=== PATIENT | male | born 1985 | race Caucasian/White ===

== ENCOUNTER 2017-08-08 19:39 | Emergency (ER) | payer MEDICAID ==
[~2017-08-08] VITALS: Ht 175.3 cm; Wt 83.9 kg
[2017-08-08 19:46] VITALS: BP_SYST 133
--- NOTE | 2017-08-08 21:22 | NUR ---
Patient to ER bed 2 to gown for evaluation. Side rails up. Report given to Deysi.
--- NOTE | 2017-08-08 21:25 | NUR ---
Patient brought in by self complaining of constant aching right groin pain. Pain 9/10. Patient also states that he has a persistenet non productive cough for 2 weeks. Pain worsening with cough. Denies any fever, nausea, vomiting and diarrhea. No other complaints/injuries per patient or as noted. Will continue to monitor.
--- NOTE | 2017-08-08 21:30 | NUR ---
ER Dr. Walls at bedside examining patient.
[2017-08-08 21:33] VITALS: BP_SYST 133
--- NOTE | 2017-08-08 21:33 | NUR ---
Patient given written and verbal discharge instructions and verbalizes understanding. ER MD discussed with patient the results and treatment provided. Patient in stable condition. ID arm band removed. Rx of Proethazine, Augmentin given. Patient educated on pain management and to follow up with PMD in 2-3 days. Pain Scale 0/10 Opportunity for questions provided and answered.
== END 2017-08-08 21:33 | disposition home or self-care (01) ==
LOC: SED 19:39
DX: K40.90 Unilateral inguinal hernia, without obstruction or gangrene, not specified as recurrent (principal); J40 Bronchitis, not specified as acute or chronic
CPT/HCPCS: 71010; 99283

== ENCOUNTER 2017-11-06 19:05 | Emergency (ER) | payer MEDICAID ==
[~2017-11-06] VITALS: Ht 175.3 cm; Wt 81.6 kg
[2017-11-06 19:05] VITALS: BP_SYST 125
--- NOTE | 2017-11-06 19:10 | NUR ---
Patient to ER bed 3 to gown for evaluation. Side rails up. Report given to Rosendo TAVARES.
--- NOTE | 2017-11-06 19:18 | NUR ---
Pt states that he has had upper left quadrant pain for two months with epigastric pain and throat pain. Denies N/V/D. More pain after eating and describes it as pressure. Pt states it was worse today. Will continue to monitor. No distress noted.
--- NOTE | 2017-11-06 19:50 | NUR ---
ER Dr. Walls at bedside examining patient.
[2017-11-06 20:15] LABS: BILIRUBIN,URINE NEGATIVE (NEGATIVE); BLOOD, URINE NEGATIVE (NEGATIVE); CLARITY/URINE CLEAR (CLEAR); COLOR,URINE YELLOW (YELLOW); GLUCOSE,URINE NEGATIVE (NEGATIVE); KETONES,URINE NEGATIVE (NEGATIVE); LEUKOCYTE ESTERASE ,URINE NEGATIVE (NEGATIVE); NITRITE, URINE NEGATIVE (NEGATIVE); PROTEIN URINE NEGATIVE (NEGATIVE)
[2017-11-06 20:31] LABS: BASOPHILS % (AUTO) 0.5 % (0.0-2.0); EOSINOPHILS # (AUTO) 0.2 K/uL (0.0-0.4); EOSINOPHILS % (AUTO) 2.3 % (0.0-4.0); HEMATOCRIT 42.8 % (36-54); MEAN CORPUSCULAR HEMOGLOBIN 32 pg (27-31); MEAN CORPUSCULAR HGB CONC 35 % (32-36); MEAN CORPUSCULAR VOLUME 91 fL (79.0-98.0); MONOCYTES # (AUTO) 0.6 K/uL (0.0-1.0); MONOCYTES % (AUTO) 8.1 % (1.7-9.3); NEUTROPHILS # (AUTO) 4.5 K/uL (1.8-7.7); NEUTROPHILS % (AUTO) 61.1 % (40.0-70.0); PLATELET COUNT (AUTO) 243 K/uL (130-430); RED CELL DISTRIBUTION WIDTH 12.1 % (9.0-15.0); WHITE BLOOD COUNT (AUTO) 7.3 K/uL (4.8-10.8)
[2017-11-06 21:17] LABS: CALCIUM 8.6 mg/dL (8.4-11.0); CREATININE 0.77 mg/dL (0.55-1.30)
[2017-11-06 21:22] LABS: ALBUMIN 3.8 g/dL (3.4-4.8)
[2017-11-06 21:45] VITALS: BP_SYST 125
[2017-11-06] MEDS ORDERED: FAMOTIDINE PF 20 MG/2 ML VIAL IVP ONE (21:45)
--- NOTE | 2017-11-06 21:45 | NUR ---
Patient given written and verbal discharge instructions and verbalizes understanding. ER MD MCLAIN discussed with patient the results and treatment provided. Patient in stable condition. ID arm band removed. IV catheter removed intact and dressing applied, no active bleeding. Rx of PEPCID given. Patient educated on pain management and to follow up with PMD. Pain Scale 2/10. Opportunity for questions provided and answered. Medication side effect fact sheet provided.
== END 2017-11-06 21:45 | disposition home or self-care (01) ==
LOC: SED 19:05
DX: K29.70 Gastritis, unspecified, without bleeding (principal); R03.0 Elevated blood-pressure reading, without diagnosis of hypertension
CPT/HCPCS: 36415; 74176; 80053; 81003; 83690; 85025; 96374; 99285; J3490

== ENCOUNTER 2018-08-02 05:34 | Emergency (ER) | payer MEDICAID ==
[~2018-08-02] VITALS: Ht 177.8 cm; Wt 83.9 kg
[2018-08-02 05:45] VITALS: BP_SYST 115
[2018-08-02 06:09] VITALS: BP_SYST 115
[2018-08-02] MEDS ORDERED: MAGNESIUM CITRATE 300 ML ORAL SOLUTION ONE (15:39)
== END 2018-08-02 06:09 | disposition home or self-care (01) ==
LOC: SED 05:34
DX: J06.9 Acute upper respiratory infection, unspecified (principal)
CPT/HCPCS: 99283

== ENCOUNTER 2018-08-26 21:18 | Emergency (ER) | payer MEDICAID ==
[~2018-08-26] VITALS: Ht 180.3 cm; Wt 86.2 kg
[2018-08-26 21:40] VITALS: BP_SYST 118
[2018-08-26] MEDS ORDERED: KETOROLAC TROMETHAMINE 60 MG/2 ML VIAL IM ONE (22:00)
[2018-08-26] MEDS ORDERED: AMOXICILLIN 500 MG CAPSULE PO ONE (22:15)
[2018-08-26 22:45] VITALS: BP_SYST 118
== END 2018-08-26 22:45 | disposition home or self-care (01) ==
LOC: SED 21:18
DX: J18.9 Pneumonia, unspecified organism (principal)
CPT/HCPCS: 71045; 74021; 96372; 99283; J1885